=== PATIENT | male | born 2000 | race Caucasian/White ===

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

== ENCOUNTER 2020-01-24 19:47 | Emergency (ER) | payer OTHER ==
[~2020-01-24] VITALS: Ht 190.5 cm; Wt 86.2 kg
[~2020-01-24 19:47] MED LIST changes: +PREDNISONE 20 M20 M1 PO
[2020-01-24] MEDS ORDERED: CEFDINIR300 MG PO (20:01)
[2020-01-24] MEDS ORDERED: IBU800 MG PO (20:02)
[2020-01-24] MEDS ORDERED: PROBIOTIC1 EAC4 PO (20:02)
[2020-01-24 20:17] LABS: INFLUENZA A ANTIGEN Negative (Negative); INFLUENZA B ANTIGEN Negative (Negative)
[2020-01-24 20:57] LABS: ABSOLUTE BASOPHILS 0.2 thou/uL (0.0-0.2); ABSOLUTE EOSINOPHILS 0.7 thou/uL (0.0-0.7); ABSOLUTE LYMPHOCYTES 3.1 thou/uL (0.8-5.3); ABSOLUTE MONOCYTES 1.2 thou/uL (0.0-1.2); ABSOLUTE NEUTROPHILS 11.5 thou/uL (1.6-8.1); EOSINOPHILS 4.3 %; HEMOGLOBIN 13.2 gm/dL (14.0-18.0); LYMPHOCYTES 18.7 %; MCH 28.9 pg (26.0-34.0); MCHC 33.9 g/dL (28.0-37.0); MCV 85.3 fL (80.0-100.0); MONOCYTES 7.2 %; MPV 7.1 fl. (7.2-11.1); NUCLEATED RBCS 0 /100WBC; PLATELET COUNT* 709 thou/uL (150-400); POLYS 68.8 %; RBC 4.57 mil/uL (4.50-6.00); RDW-CV 12.3 % (10.5-14.5); WBC 16.7 thou/uL (4.0-11.0)
[2020-01-24 21:08] LABS: CALCIUM 8.8 mg/dL (8.5-10.1); POTASSIUM 4.3 mmol/L (3.5-5.1)
[2020-01-24 21:19] LABS: ALBUMIN 2.7 g/dL (3.4-5.0); TOTAL BILIRUBIN 0.3 mg/dL (<0.1-1.0); TOTAL PROTEIN 7.6 g/dL (6.4-8.2)
[2020-01-24 22:51] LABS: URINE BILIRUBIN NEGATIVE (Negative); URINE BLOOD NEGATIVE (Negative); URINE CLARITY CLEAR; URINE COLOR YELLOW; URINE GLUCOSE-RANDOM NEGATIVE (Negative); URINE KETONES NEGATIVE (Negative); URINE LEUKOCYTES-REFLEX NEGATIVE (Negative); URINE NITRITE-REFLEX NEGATIVE (Negative); URINE PROTEIN TRACE (Negative); URINE UROBILINOGEN 0.2 E.U./dl (0.2-1.0)
[2020-01-25 01:30] VITALS: BP 137/73
--- NOTE | 2020-01-25 13:53 | EKG ---
[place] [address] ELECTROCARDIOGRAM REPORT Name: ANIL PEÑA Room: [facility]#: [id number] Admission: 01/24/20 Attend Phys: Discharge: 01/25/20 Date of : [birth year] Date of Service: 01/24/202051 Report #: [id number] THIS REPORT FOR: //name// [facility] ED Test Date: 2020-01-24 Test Time: 20:52:22 Pat Name: ANIL PEÑA Department: Room: Gender: Security Vehicle Patrol Officer: [facility] : 2000 Requested By: Mildred Guzman Order Number: [id number] MD: Antonio Wood Measurements Intervals [place] Rate: 97 P: 10 IN: 153 QRS: 53 QRSD: 95 T: 23 QT: 358 QTc: 455 Interpretive Statements Sinus rhythm Probable left atrial enlargement Baseline wander in lead(s) III No previous ECG available for comparison Electronically Signed On 01-25-2020 13:53:04 CDT by Antonio Wood [email or web address] <ELECTRONICALLY SIGNED> By: Antonio Wood MD, [facility] 01/25/20 1353 51 51 Antonio Wood MD, FAC /EPI
== END 2020-01-25 01:31 | disposition short-term general hospital (02) ==
LOC: M.ERS 19:47
PROVIDERS: Emergency Medicine
DX: J90 Pleural effusion, not elsewhere classified (principal); J94.8 Other specified pleural conditions; R50.9 Fever, unspecified; J45.909 Unspecified asthma, uncomplicated; Z20.828 Contact with and (suspected) exposure to other viral communicable diseases; Z88.1 Allergy status to other antibiotic agents